=== PATIENT | female | born 1960 | race American Indian/Alaskan Native ===

== ENCOUNTER 2016-11-17 12:39 | Outpatient (CLI) | payer BC ==
--- NOTE | 2016-11-17 13:44 | Mammography Report ---
Screening mammogram: Routine views are compared to prior exams dating back to 2013. When compared to the 2014 examination the small nodule in the posterior medial left breast as well as the multiple nodular areas in the tail of the right breast remain stable. The overall fibroglandular pattern is that of intermediate density in a symmetric distribution with no additional findings. CAD used. Impression: Stable exam. Recommendation: Annual mammogram followup. BI-RADS CATEGORY: 1 = Negative ACR BI-RADS MAMMOGRAPHIC CODES: 0 = Needs additional imaging evaluation; 1 = Negative; 2 = Benign; 3 = Probably benign; 4 = Suspicious; 5 = Malignant; 6 = Known biopsy-proven malignancy COMMENT: 1. Dense breast tissue, i.e., adenosis, fibrocystic changes, etc., may obscure an underlying neoplasm. 2. Approximately 10% of cancers are not detected with mammography. 3. A negative mammography report should not delay biopsy if a clinically suspicious mass is present.
== END 2016-11-17 12:40 | disposition home or self-care (01) ==
LOC: MAMMO 12:39
PROVIDERS: ATTEND Internal Medicine
DX: Z12.31 Encounter for screening mammogram for malignant neoplasm of breast (principal)
CPT/HCPCS: 77067; G0202

== ENCOUNTER 2018-01-19 14:43 | Outpatient (CLI) | payer BC ==
--- NOTE | 2018-01-22 08:47 | Mammography Report ---
BILATERAL DIGITAL SCREENING MAMMOGRAM with CAD: 01/19/18 14:43:00 CLINICAL: Routine screening. COMPARISON:11/17/16 FINDINGS: The breasts are mostly fatty with a few bilateral. Left asymmetries and architectural distortion require additional imaging. No suspicious calcifications. The right breast is negative. IMPRESSION: Left asymmetries with architectural distortion requiring further workup. BI-RADS CATEGORY: 0 -- Additional Imaging Evaluation Required RECOMMENDATION: Recall for left lateralmedial and spot magnification MLO and CC views and left breast ultrasound if needed. ACR BI-RADS MAMMOGRAPHIC CODES: 0 = Needs additional imaging evaluation; 1 = Negative; 2 = Benign; 3 = Probably benign; 4 = Suspicious; 5 = Malignant; 6 = Known biopsy-proven malignancy COMMENT: 1. Dense breast tissue, i.e., adenosis, fibrocystic changes, etc., may obscure an underlying neoplasm. 2. Approximately 10% of cancers are not detected with mammography. 3. A negative mammography report should not delay biopsy if a clinically suspicious mass is present. COMMENT: Patient follow-up letters are generated via our [employer] application.
== END 2018-01-19 14:44 | disposition home or self-care (01) ==
LOC: MAMMO 14:43
PROVIDERS: ATTEND Internal Medicine
DX: Z12.31 Encounter for screening mammogram for malignant neoplasm of breast (principal)
CPT/HCPCS: 77067

== ENCOUNTER 2019-09-19 07:53 | Outpatient (CLI) | payer BC ==
--- NOTE | 2019-09-19 09:31 | Mammography Report ---
DIGITAL SCREENING MAMMOGRAM WITH CAD, 09/19/2019 INDICATION: Routine screening mammography. TECHNIQUE: Digital bilateral 2D mammography was obtained in the craniocaudal and mediolateral obliq ue projections. This examination was interpreted with the benefit of Computer-Aided Detection analysi s. COMPARISON: 11/17/2016, 02/19/2018. FINDINGS: Breast Density: There are scattered areas of fibroglandular density. There is no evidence of dominant mass, suspicious calcifications or architectural distortion in eithe r breast. IMPRESSION: Follow up recommendation: Routine yearly BI-RADS Category 1: Negative. A "normal" or negative report should not discourage follow up or biopsy of a clinically significant f inding. A written summary of these findings will be mailed to the patient. The patient will be entered into a mammography reporting system which will generate a reminder letter for the patient's next appointmen t at the appropriate interval. The [employer] recommends yearly mammograms starting at age 40 and continuing as l momo as a woman is in good health. Breast MRI is recommended for women with an approximate 20-25% or greater lifetime risk of breast cancer, including women with a strong family history of breast or ova moira cancer or who have been treated for Hodgkin's disease. Signer Name: Jorje Fontenot MD Signed: 09/19/2019 9:27 AM Workstation Name: [id number]
== END 2019-09-19 07:54 | disposition home or self-care (01) ==
LOC: MAMMO 07:53
PROVIDERS: ATTEND Internal Medicine
DX: Z12.31 Encounter for screening mammogram for malignant neoplasm of breast (principal)
CPT/HCPCS: 77067

== ENCOUNTER 2021-01-18 08:37 | Outpatient (CLI) | payer OTHER ==
--- NOTE | 2021-01-18 11:31 | Mammography Report ---
DIGITAL SCREENING MAMMOGRAM WITH CAD, 01/18/2021 CLINICAL INFORMATION / INDICATION: Routine screening mammography. TECHNIQUE: Digital bilateral 2D mammography was obtained in the craniocaudal and mediolateral obliqu e projections. This examination was interpreted with the benefit of Computer-Aided Detection analysis . COMPARISON: 09/29/2019, 02/27/2018, 01/19/2018 FINDINGS: Breast Density: There are scattered areas of fibroglandular density. No dominant mass, suspicious calcifications, or architectural distortion in either breast. Minimal circumscribed bilateral breast nodularity is again noted and appears unchanged. IMPRESSION: No mammographic evidence of malignancy. Follow up recommendation: Routine yearly BI-RADS Category 2: Benign. A "normal" or negative report should not discourage follow up or biopsy of a clinically significant f inding. A written summary of these findings will be mailed to the patient. The patient will be entered into a mammography reporting system which will generate a reminder letter for the patient's next appointmen t at the appropriate interval. The [employer] recommends yearly mammograms starting at age 40 and continuing as l momo as a woman is in good health. Breast MRI is recommended for women with an approximate 20-25% or greater lifetime risk of breast cancer, including women with a strong family history of breast or ova moira cancer or who have been treated for Hodgkin's disease. Signer Name: Karol Villarreal MD Signed: 01/18/2021 11:23 AM Workstation Name: [id number]
== END 2021-01-18 08:38 | disposition home or self-care (01) ==
LOC: MAMMO 08:37
PROVIDERS: ATTEND Nurse Practitioner Family
DX: Z12.31 Encounter for screening mammogram for malignant neoplasm of breast (principal); N64.89 Other specified disorders of breast
CPT/HCPCS: 77067